=== PATIENT | male | born 1975 | race Caucasian/White ===

== ENCOUNTER 2024-07-30 14:08 | Emergency (ER) | payer OTHER, SELFPAY ==
[2024-07-30 14:09] VITALS: BP 119/73; PULSE 57; RESP 16; TEMP 35.6; O2SAT 98; BMI 27.8
[2024-07-30] MEDS: Diphth,Pertuss(Acell),Tet Vac 0.5 ML Vial IM (15:03)
[2024-07-30] MEDS: Lidocaine 1% (20 ml mdv) 20 ML Vial INFILT (15:05)
--- NOTE | 2024-07-30 15:32 | EX.ED.GENINJ ---
HPI History of Present Illness Chief Complaint: Laceration Detail of Chief Complaint: Patient presents with laceration to the lower lip and mental region Informant: patient Onset/Context/Timing Onset: Today and Hours Mechanism/Context: Blunt Injury Location: Lower lip and chin Current Severity: Mild Maximum Severity: Moderate Worsened by: Initial injury Relieved by: Not applicable Associated Symptoms Associated Symptoms: Negative for Parasthesias, Weakness, Loss of function, Inability to ambulate, Loss of consciousness or Amnesia Narrative Narrative: Patient is a 49-year-old male. Tetanus is unknown. He denies trauma to his teeth. He denies difficulty opening closing his mouth. He complains of pain to his lip and chin region. There was no loss of conscious. Tetanus Immunization: Unknown Prior similar symptoms: No Recent Illness/Hospitalization: No PFSH PFSH Allergy/AdvReac Type Severity Reaction Status Date / Time No Known Allergies Allergy Verified 07/30/24 14:09 Social History Smoking Status: Former smoker ROS ROS ED Eyes Eyes: Denies blurry vision or change in vision ENT ENT ED: Reports other Details: HPI narrative ; Denies ear pain, rhinorrhea or sore throat Neurologic Neurologic: Denies headache(s) Psychiatric Psychiatric: Denies anxiety Hematologic/Lymphatic Hematologic/Lymphatic: Denies easy bleeding or easy bruising Allergic/Immunologic Allergic/Immunologic ED: Denies mouth swelling or tongue swelling EXAM Physical Exam Const Vital Signs: 07/30/24 14:09 Temperature 96.1 F L Temperature Source Temporal Pulse Rate 57 L Respiratory Rate 16 Blood Pressure 119/73 Blood Pressure Mean 88 Pulse Ox 98 Oxygen Delivery Method Room Air Positive well nourished and well developed General Appearance ED: well developed and NAD HEENT HEENT Narrative: Laceration to the lower lip with involvement of the vermilion border and the right side of the chin. There is no tenderness of the TMJ joint. He has no malocclusion. There is no evidence of dental trauma. There is no evidence of trauma to the nose. Furthermore there is no septal deviation hematoma. Trachea is midline. There is no dysphonia. Eyes PERRL and EOMs intact bilaterally Neck full ROM Resp normal respiratory effort Cardio regular rhythm Rate: regular rate Neuro oriented x3 and CN's II-XII intact bilaterally [place] Coma Scale: document GCS findings Spontaneous Obeys Commands Oriented 15 Sensorium / Orientation: alert Psych mental status grossly normal and thought process normal Skin no rashes or lesions noted, skin turgor normal and no jaundice Skin Narrative: Wound involving the lower lip and chin. To be detailed under the procedure note PROC Procedures Other Procedures Procedure(s): Laceration #1: Laceration involving the lower lip and vermilion border. Total length 1 cm. Area anesthetized with lidocaine without epinephrine. Wound was irrigated with 100 cc normal saline. There is superficial fragment of wood that was removed. Total of 5 stitches placed. Simple interrupted sutures placed. The wound was closed using 6-0 Ethilon. Laceration #2 involving the right side of the chin. This is curvilinear. 2.7 cm. Wound was anesthetized by local filtration and irrigated with 100 cc of normal saline. There is no foreign body. Using 6-0 Ethilon the wound was sutured with a total of 7 simple interrupted sutures. MDM MDM MDM Narrative Medical decision making narrative: Nurse shaved hair since he has a jackson. Will anesthetize and suture. My opinion imaging is not required. Discharge Plan Triage Chief Complaint: Laceration ED Provider: Fabian Padron Dx/Rx/DC Orders Clinical Impression: Laceration of vermilion border of lower lip, Chin laceration, Blunt trauma of face Primary Care Provider: Ruben Vang Referrals: Ruben Vang MD [Primary Care Provider] - 5 Days for suture removal Activity Restrictions/Additional Instructions: 1. Keep wounds clean and dry for the next 4872 hours 2. Apply bacitracin ointment 2-3 times a day Print Language: Danish Disposition Disposition: Home, Self Care
[2024-07-30 16:16] VITALS: BP 111/65; PULSE 65; RESP 16; TEMP 36.8; O2SAT 98
== END 2024-07-30 16:17 | disposition home or self-care (01) ==
PROVIDERS: Emergency Provider Emergency Medicine; PCP Family Medicine; Visit Provider Emergency Medicine
DX: S01.511A Laceration without foreign body of lip, initial encounter (principal); S01.81XA Laceration without foreign body of other part of head, initial encounter; Z87.891 Personal history of nicotine dependence; X58.XXXA Exposure to other specified factors, initial encounter; Z23 Encounter for immunization
CPT/HCPCS: 12013; 90471; 90715; 99283

== ENCOUNTER → 2025-10-20 | Outpatient (CLI) | payer OTHER, SELFPAY ==
--- OUTSIDE RECORDS SUMMARY | 2025-10-20 15:49 | XMS RPT_ITS | CCD ---
Author Organization [facility] Care Team Providers Care Drop Board Man Name Role Phone Fabian Padron Attending Unavailable Ruben Vang Primary Care Unavailable Problems Problem Classification Problem Date Documented Da te Episodic/Chronic Open wounds of head; neck; and trunk (1 source) Laceration without foreign body of lip, initial encounter; Translations: [Laceration without foreign body of lip, initial encounter] Onset: 08-23-2024 Episodic Results Test Name Value Interpretation Reference Range [facility] ity Emergency Department Summary on 07-30-2024 Emergency Department Summary [facility] Medical Records Department [address] [place] [address] Emergency Department Summary 07/30/24 MR#: [id number] Acct: [id number] Name: JOSI CELAYA Rep #: [id number] : 1975 49 From: Fabian Padron MD PCP: Dr. Ruben Vang MD Status:REG ER Location: ED HPI History of Present Illness Chief Complaint: Laceration Detail of Chief Complaint: Patient presents with laceration to the lower lip and mental region Informant: patient Onset/Context/Timing Onset: Today and Hours Mechanism/Context: Blunt Injury Location: Lower lip and chin Current Severity: Mild Maximum Severity: Moderate Worsened by: Initial injury Relieved by: Not applicable Associated Symptoms Associated Symptoms: Negative for Parasthesias, Weakness, Loss of function, Inability to ambulate, Loss of consciousness or Amnesia Narrative Narrative: Patient is a 49-year-old male. Tetanus is unknown. He denies trauma to his teeth. He denies difficulty opening closing his mouth. He complains of pain to his lip and chin region. There was no loss of conscious. Tetanus Immunization: Unknown Prior similar symptoms: No Recent Illness/Hospitalizat ion: No PFSH PFSH Allergy/AdvReac Type Severity Reaction Status Date / Time No Known Allergies Allergy Verified 07/30/24 14:09 Social History Smoking Status: Former smoker ROS ROS ED Eyes Eyes: Denies blurry vision or change in vision ENT ENT ED: Reports other Details: HPI narrative ; Denies ear pain, rhinorrhea or sore throat Neurologic Neurologic: Denies headache(s) Psychiatric Psychiatric: Denies anxiety Hematologic/Lymphati c Hematologic/Lymphati c: Denies easy bleeding or easy bruising Allergic/Immunologic Allergic/Immunologic ED: Denies mouth swelling or tongue swelling EXAM Physical Exam Const Vital Signs: 07/30/24 14:09 Temperature 96.1 F L Temperature Source Temporal Pulse Rate 57 L Respiratory Rate 16 Blood Pressure 119/73 Blood Pressure Mean 88 Pulse Ox 98 Oxygen Delivery Method Room Air Positive well nourished and well developed General Appearance ED: well developed and NAD HEENT HEENT Narrative: Laceration to the lower lip with involvement of the vermilion border and the right side of the chin. There is no tenderness of the TMJ joint. He has no malocclusion. There is no evidence of dental trauma. There is no evidence of trauma to the nose. Furthermore there is no septal deviation hematoma. Trachea is midline. There is no dysphonia. Eyes PERRL and EOMs intact bilaterally Neck full ROM Resp normal respiratory effort Cardio regular rhythm Rate: regular rate Neuro oriented x3 and CN's II-XII intact bilaterally [place] Coma Scale: document GCS findings Spontaneous Obeys Commands Oriented 15 Sensorium / Orientation: alert Psych mental status grossly normal and thought process normal Skin no rashes or lesions noted, skin turgor normal and no jaundice Skin Narrative: Wound involving the lower lip and chin. To be detailed under the procedure note PROC Procedures Other Procedures Procedure(s): Laceration #1: Laceration involving the lower lip and vermilion border. Total length 1 cm. Area anesthetized with lidocaine without epinephrine. Wound was irrigated with 100 cc normal saline. There is superficial fragment of wood that was removed. Total of 5 stitches placed. Simple interrupted sutures placed. The wound was closed using 6-0 Ethilon. Laceration #2 involving the right side of the chin. This is curvilinear. 2.7 cm. Wound was anesthetized by local filtration and irrigated with 100 cc of normal saline. There is no foreign body. Using 6-0 Ethilon the wound was sutured with a total of 7 simple interrupted sutures. MDM MDM MDM Narrative Medical decision making narrative: Nurse shaved hair since he has a jackson. Will anesthetize and suture. My opinion imaging is not required. Discharge Plan Triage Chief Complaint: Laceration ED Provider: Fabian Padron Dx/Rx/DC Orders Clinical Impression: Laceration of vermilion border of lower lip, Chin laceration, Blunt trauma of face Primary Care Provider: Ruben Vang Referrals: Ruben Vang MD [Primary Care Provider] - 5 Days for suture removal Activity Restrictions/Additio nal Instructions: 1. Keep wounds clean and dry for the next 4872 hours 2. Apply bacitracin ointment 2-3 times a day Print Language: Bhutanese Disposition Disposition: Home, Self Care What to do if you have Problems For any increased pain, shortness of breath, bleeding, nausea or vomiting, chest pain, or any unexpected problems, contact your Primary Care Provider. Call [facility] ([phone]) or report to the closest Emergency Room. Call 911 if necessary. 07/30/24 1601 (more content not included)... Normal [facility] Encounters Encounter Date Encounter Type Care Provider Facility Start: 07-30-2024 End: 07-30-2024 Emergency department patient visit [facility] Facility:[facility] Payers Date Payer Category Payer Private Health Insurance [id number] 2024 Self-pay Unknown [id number] Summary Purpose Family History No Family History Records Found Advance Directives No Advanced Directives Records Found Additional Source Comments (unrecognized sect ion and content) No Status Records Found INFORMATION SOURCE (unrecogn ized section and content) DATE CREATED AUTHOR 08/25/2024 [facility] FOR RECORDS PERTAINING TO PATIENTS WHO ARE OR HAVE BEEN ENROLLED IN A CHEMICAL DEPENDENCY/SUBSTANCEABUSE PROGRAM, SOME INFORMATION MAY BE OMITTED. This clinical summary was aggregated from multiple sources. Caution should be exercised in using it in the provision of clinical care. This summary normalizes information from multiple sources, and as a consequence, information in this document may materially change the coding, format and clinical context of patient data. In addition, data may be omitted in some cases. CLINICAL DECISIONS SHOULD BE BASED ON THE PRIMARY CLINICAL RECORDS. [facility] provides no warranty or guarantee of the accuracy or completeness of information in this document.
[2025-10-20 17:18] LABS: Hematocrit 46.1 % (40-54); Hemoglobin 15.1 g/dL (13.0-16.5); Immature Granulocytes Count 0.040 X10^3/uL (0.0-0.0); Mean Corp Hgb Conc 32.8 g/dL (32-36); Mean Corpuscular Volume 86.7 fL (80-94); Mean Platelet Vol. 9.9 fl (6.2-12.0); NRBC Flagged by Analyzer 0 % (0-5); Platelet Count 315 K/mm3 (150-450); RBC Distribution Width CV 12.4 % (11.6-14.6); RBC Distribution Width SD 39.3 fl (35.1-43.9); Red Blood Count 5.32 M/mm3 (4.6-6.2); White Blood Count 9.0 K/mm3 (4.4-11.0)
[2025-10-20 17:50] LABS: AST(SGOT) 24 U/L (<=37); Alanine Aminotransfer ALT/SGPT 32 U/L (<=46); Albumin, Serum 4.8 g/dL (3.5-5.0); Alkaline Phosphatase 48 U/L (40-129); Anion Gap 10 (7-18); BUN 14 mg/dL (4-19); BUN/Creat Ratio 11.3 RATIO (10-20); Calcium,Total 9.9 mg/dL (7.6-11.0); Carbon Dioxide 27.5 mmol/L (20.0-29.0); Chloride 102 mmol/L (96-106); Globulin 3.0 g/dL (2.2-4.2); Glucose 127 mg/dL (70-99); Magnesium 2.5 mg/dL (1.5-2.2); Potassium 3.9 mmol/L (3.5-5.1)
== END | disposition home or self-care (01) ==
LOC: MTLAB 15:46
PROVIDERS: PCP Family Medicine; Referring Provider Nurse Practitioner Family; Visit Provider Nurse Practitioner Family
DX: R00.2 Palpitations (principal)
CPT/HCPCS: 36415; 80053; 83735; 84443; 85025